=== PATIENT | male | born 1990 | race Caucasian/White ===

== ENCOUNTER 2017-08-13 16:59 | Emergency (ER) | payer SELFPAY ==
[2017-08-13 17:54] VITALS: BP 156/98; PULSE 106; RESP 20; TEMP 36.6; O2SAT 96; BMI 32.1
--- NOTE | 2017-08-13 18:02 | CT_ITS ---
CT abdomen pelvis wo con CLINICAL INDICATION: Abdominal pain with nausea and vomiting ITS.REASON: ABD PAIN ORDERING PHYSICIAN: Kaylie Jenkins MD PATIENT AGE: 27 years COMPARISON: None TECHNIQUE: Axial images obtained with sagittal and coronal reformats. PROCEDURE: Oral Contrast: None IV Contrast: None . FINDINGS: No acute finding in the lung bases. Right gynecomastia. The liver, spleen, gallbladder, adrenal glands, pancreas, and kidneys have an unremarkable unenhanced CT appearance. Scattered small lymph nodes are present in the mesentery's. There is a tiny umbilical hernia containing fat. Unremarkable appendix. Fluid-filled loops of mildly distended large with air-fluid levels in the large bowel consistent with diarrhea disease/ileus/colitis No acute bony anomalies. IMPRESSION: Mildly distended colon with air-fluid levels without obvious wall thickening consistent with diarrhea disease. Low-grade colitis/ileus also a consideration. Otherwise negative abdomen/pelvis
[2017-08-13 18:34] LABS: Basophils % 0.1 % (0.1-2.0); Eosinophils # 0.2 K/mm3 (0.0-0.4); Eosinophils % 3.2 % (0.1-12.0); Hematocrit 52.4 % (42.0-52.0); Lymphocytes # 0.4 K/mm3 (0.7-4.5); Lymphocytes % 7.3 K/mm3 (10-50); Mean Corpuscular HGB Conc 34.8 g/dL (31.8-35.4); Mean Corpuscular Hemoglobin 29.8 pg (27.0-31.2); Mean Corpuscular Volume 85.8 fl (80-94); Mean Platelet Volume 7.9 fl (7.4-10.4); Monocytes # 0.1 K/mm3 (0.1-1.0); Monocytes % 1.4 % (1.7-9.3); Neutrophils % 87.9 % (37.0-80.0); Platelet Count 251 K/mm3 (142-424); Red Blood Count 6.11 M/mm3 (4.60-6.20); Red Cell Distribution Width 13.3 % (11.5-17.5); White Blood Count 5.7 K/mm3 (4.8-10.8)
[2017-08-13 18:38] LABS: Alanine Aminotransferase 118 U/L (12-78); Albumin Level 4.4 gm/dL (3.4-5.0); Albumin/Globulin Ratio 1.1 (1.1-1.8); Alkaline Phosphatase 71 U/L (46-116); Amylase 26 U/L (25-125); Anion Gap 10.9 mEq/L (5-15); Aspartate Amino Transferase 68 U/L (15-37); Bilirubin,Total 1.5 mg/dL (0.2-1.0); Blood Urea Nitrogen 10 mg/dL (7-18); Calcium 8.8 mg/dL (8.5-10.1); Carbon Dioxide 30 mmol/L (21.0-32.0); Chloride 99 mmol/L (98-107); Creatinine Clearance Estimated 128 mL/min (0-300); Creatinine,Serum 1.15 mg/dL (0.70-1.30); Estimated Glomerular Filt Rate > 60 ml/min (>60); GFR (African American) > 60 ML/MIN (>60); Glucose 116 mg/dL (74-106); Lipase 73 u/L (73-393); Potassium 3.9 mmoL/L (3.5-5.1); Sodium 136 mmol/L (136-145); Total Protein,Serum 8.4 gm/dL (6.4-8.2)
[2017-08-13 18:46] LABS: MANUAL DIFFERENTIAL MANUAL DIFFERENTIAL (MANUAL DIFF)
[2017-08-13 18:47] LABS: Hemoglobin 18.2 g/dL (14.1-18.0)
[2017-08-13 19:27] LABS: Lymphocytes % 4 % (10-50); Neutrophils % 83 % (42-76); Platelet Estimate Normal; RBC Morphology Normal; Total Cells Counted 100
[2017-08-13 20:23] VITALS: BP 126/64; PULSE 126; RESP 20; TEMP 37.6; O2SAT 98
--- NOTE | 2017-08-13 20:47 | [facility].EDGENADL ---
ED Disposition Clinical Impression: Acute gastroenteritis, Dehydration, Elevated liver enzymes, Fatty liver Disposition: Home, Self-Care Condition on Discharge: Good Instructions: DI for Dehydration -- Adult, DI for Viral Gastroenteritis -- Adult, DI for Abdominal Pain-Adult, DI for Acute Abdomen Referrals: Dao Blanchard MD [Primary Care Provider] - 3 days - Critical Care Critical Care Time: No Attestation: On 08/13/17, the high probability of a clinically significant, sudden or life threatening deterioration of the following system(s) required my full and direct attention, intervention and personal management. The time I documented below is in addition to time spent performing reported procedures but includes the following listed in this critical care notation. Medical Decision Making Vital Signs: 08/13/17 17:54 08/13/17 20:23 Temperature 97.9 F 99.7 F H Temperature Source Oral Oral Pulse Rate [Right Brachial] 106 H 126 H Respiratory Rate 20 20 Blood Pressure [Right Arm] 156/98 126/64 Blood Pressure Mean [Right Arm] 117 84 Blood Pressure Source [Right Arm] Automatic Cuff Blood Pressure Position [Right Arm] Supine 02 Sat by Pulse Oximetry 96 98 Oxygen Delivery Method Room Air Room Air - Lab Data Lab Results 08/13/17 18:10: WBC 5.7, RBC 6.11, Hgb 18.2 H*, Hct 52.4 H, MCV 85.8, MCH 29.8, MCHC 34.8, RDW 13.3, Plt Count 251, MPV 7.9, Neut % (Auto) 87.9 H, Lymph % (Auto) 7.3 L, [place] % (Auto) 1.4 L, Eos % (Auto) 3.2, Baso % (Auto) 0.1, Neut # (Auto) 5.0, Lymph # (Auto) 0.4 L, [place] # (Auto) 0.1, Eos # (Auto) 0.2, Baso # (Auto) 0.0, Total Counted 100, Neutrophils % (Manual) 83 H, Band Neutrophils % 13.0 H, Lymphocytes % (Manual) 4 L, Platelet Estimate Normal, RBC Morphology Normal 08/13/17 18:10: Sodium 136, Potassium 3.9, Chloride 99, Carbon Dioxide 30, Anion Gap 10.9, BUN 10, Creatinine 1.15, Estimated Creat Clear 128, Estimated GFR > 60, Est GFR ( Amer) > 60, Glucose 116 H, Calcium 8.8, Total Bilirubin 1.5 H, AST 68 H, ALT 118 H, Alkaline Phosphatase 71, Total Protein 8.4 H, Albumin 4.4, Globulin 4.0 H, Albumin/Globulin Ratio 1.1, Amylase 26, Lipase 73 Result diagrams: 08/13/17 18:10 08/13/17 18:10 Orders (Tests/Meds): ED MEDICATIONS Discontinued Medications Generic Name Dose Route Start Last Admin Trade Name Freq PRN Reason Stop Dose Admin Sodium Chloride 1,000 mls @ 999 mls/hr 08/13/17 18:15 08/13/17 18:14 Sod Chloride 0.9% 1000ml Bag IV 08/13/17 19:15 999 mls/hr .Q1H1M ASIA Administration Ketorolac Tromethamine 30 mg 08/13/17 18:07 08/13/17 18:14 Toradol 30mg/Ml Vial IV 08/13/17 18:08 30 mg ONCE ONE Administration Ondansetron HCl 4 mg 08/13/17 18:07 08/13/17 18:14 Zofran 4mg/2ml Vial IV 08/13/17 18:08 4 mg ONCE ONE Administration ORDERS Category Date Time Status CT abdomen pelvis wo con Stat Cat Scan 08/13/17 18:02 Taken Urinalysis and Microscopic Stat Lab 08/13/17 18:02 Ordered - CT Data CT Scan: Abdomen, Pelvis Time Received: 20:[address] Reviewed: Yes: I have viewed the radiologist's interpretation Findings Narrative: CT scan interpreted by ad radiologist. Faxed report received and reviewed: Distended colon with air-fluid levels but no wall thickening. These findings reflect diarrhea and possibly low-grade colitis/colonic ileus. Normal appendix. Normal kidneys and gallbladder. No small bowel obstruction. - Paras Inquiry Pt receiving controlled substance: No General Adult HPI - General Chief complaint: Abdominal Pain Stated complaint: abd pain,vomiting Mode of Arrival: Family Vehicle Limitations: No Limitations Description of Symptoms (Recalled from ER Triage Doc. by RN): PT C/O NAUSEA FOR 2 DAYS AND HAS BEEN VOMITING TODAY WITH RLQ PAIN. - History of Present Illness HPI narrative: The patient has a 2 day history of vomiting, diarrhea, and abdominal pain. He has not been aware of any fever. No blood in h
[2017-08-13 21:47] VITALS: BP 95/59; PULSE 140; RESP 20; TEMP 37.6; O2SAT 94
== END 2017-08-13 21:49 | disposition home or self-care (01) ==
PROVIDERS: Emergency Medicine; Emergency Provider Emergency Medicine; PCP Family Medicine
DX: R11.10 Vomiting, unspecified (principal); A08.4 Viral intestinal infection, unspecified; E86.0 Dehydration; R74.8 Abnormal levels of other serum enzymes; R10.31 Right lower quadrant pain
CPT/HCPCS: 74176; 80053; 82150; 83690; 85007; 85025; 96365; 96375; 99283; J2405